=== PATIENT | male | born 1965 | race Hispanic/Latino ===

== ENCOUNTER 2017-02-04 07:26 | Inpatient (IN) | payer MEDICARE, OTHER ==
[2017-02-04] MEDS ORDERED: ZOFRAN IV ONE ×2 (08:03→12:56)
[2017-02-04] MEDS ORDERED: NACL 0.9% 1000 ML 1,000 ML IV ONE ×2 (08:03)
[2017-02-04] MEDS ORDERED: DILAUDID IV PRN (08:11)
[2017-02-04] MEDS ORDERED: ZOFRAN ONE (08:17)
[2017-02-04] MEDS ORDERED: NACL 0.9% 1000 ML 1,000 ML ONE ×2 (08:17→10:13)
--- NOTE | 2017-02-04 08:18 | Emergency Department Report ---
HPI - General Chief Complaint: Abdominal Pain Time Seen by Provider: 02/04/17 08:03 - [facility] HPI: Room 9 The patient is a 51-year-old male presenting with a chief complaint of abdominal pain. Patient states she developed lower abdominal pain with pain to the right flank constantly waxing and waning since yesterday. Patient describes plain is sharp in nature. Patient states he feels bloated and has exhibited nausea vomiting. Patient denies fever, dysuria or hematuria. The patient states his last bowel movement was a few minutes ago and there has been no change in his bowel habits. The patient contacted his bow maker gift wrapping ( Dr. Herring) this morning at 04:00 and then subsequently called 911 to come to the ED Location: Abdomen Duration: Constant since yesterday Quality: Sharp Severity: 7.5/10 Modifying factors: [see above] Context: [see above] Mode of transportation: [not driving] ED Past Medical Hx - Past Medical History Previous Medical History?: Yes Hx Hypertension: Yes Hx Arthritis: Yes (rheumatoid) Additional medical history: Jpouch, ulcerative colitis; removed large intestines 10 years ago hypercholesterolemia - Surgical History Past Surgical History?: Yes Additional Surgical History: J-pouch, knee surgery, shoulder surgery, rhinoplasty, oral surgery, tonsillectomy - Social History Smoking Status: Never Smoker Substance Use Type: None (denies illicit drug use), Alcohol (occasional) ED Review of Systems ROS: Stated complaint: POSS BOWEL OBSTRUCTION Other details as noted in HPI Constitutional: denies: fever Gastrointestinal: abdominal pain, nausea, vomiting Genitourinary: denies: dysuria, hematuria Musculoskeletal: back pain Physical Exam - Physical Exam Vital Signs: Vital Signs 02/04/17 07:36 Temperature 97.3 F L Pulse Rate 63 Respiratory 18 Rate Blood Pressure 98/60 [Left] O2 Sat by Pulse 98 Oximetry Physical Exam: GENERAL: The patient is well-developed well-nourished male lying on stretcher. Be in moderate discomfort. [] HEENT: Normocephalic. Atraumatic. Extraocular motions are intact. Patient has moist mucous membranes. NECK: Supple. Trachea midline CHEST/LUNGS: Clear to auscultation. There is no respiratory distress noted. HEART/CARDIOVASCULAR: Regular. There is no tachycardia. There is no gallop rub or murmur. ABDOMEN: Abdomen is soft, with tenderness to palpation in bilateral lower quadrants. There is no rigidity. Patient has normal bowel sounds. There is no abdominal distention. SKIN: There is no rash. There is no diaphoresis. NEURO: The patient is awake, alert, and oriented. The patient is cooperative. The patient has normal speech MUSCULOSKELETAL: There is no evidence of acute injury. ED Course Vital Signs 02/04/17 07:36 Temperature 97.3 F L Pulse Rate 63 Respiratory 18 Rate Blood Pressure 98/60 [Left] O2 Sat by Pulse 98 Oximetry - Consultations Consultation #1: 02/04/17 11:15 Gastroenterology paged 02/04/17 11:42 Case discussed with Alina RAUSCH/PLY CUTTER- will have Dr. Denis consult ED Medical Decision Making - Lab Data Result diagrams: 02/04/17 08:29 02/04/17 08:29 Laboratory Tests 02/04/17 02/04/17 02/04/17 08:29 08:29 10:47 WBC 12.9 H RBC 5.91 H Hgb 16.9 H Hct 50.6 H MCV 86 MCH 29 MCHC 33 RDW 14.4 Plt Count 346 Add Manual Diff Complete Total Counted 100 Seg Neuts % (Manual) 59.0 Band Neutrophils % 26.0 Lymphocytes % (Manual) 2.0 L Reactive Lymphs % (Man) 0 Monocytes % (Manual) 11.0 H Eosinophils % (Manual) 0 Basophils % (Manual) 0 Metamyelocytes % 2.0 Myelocytes % 0 Promyelocytes % 0 Blast Cells % 0 Nucleated RBC % Not Reportable Seg Neutrophils # Man 7.6 Band Neutrophils # 3.4 Lymphocytes # (Manual) 0.3 L Abs React Lymphs (Man) 0.0 Monocytes # (Manual) 1.4 H Eosinophils # (Manual) 0.0 Basophils # (Manual) 0.0 Metamyelocytes # 0.3 Myelocytes # 0.0 Promyelocytes # 0.0 Blast Cells # 0.0 WBC Morphology Not Reportable Hypersegmented Neuts Not Reportable Hyposegmented Neuts Not Reportable Hypogranular Neuts Not Reportable Smudge Cells Not Reportable Toxic Granulation Not Reportable Toxic Vacuolation Not Reportable Dohle Bodies Not Reportable Pelger-Huet Anomaly Not Reportable Robin Rods Not Reportable Platelet Estimate Appears normal Clumped Platelets Not Reportable Plt Clumps, EDTA Not Reportable Large Platelets Not Reportable Giant Platelets Not Reportable Platelet Satelliting Not Reportable Plt Morphology Comment Not Reportable RBC Morphology Not Reportable Dimorphic RBCs Not Reportable Polychromasia Not Reportable Hypochromasia Not Reportable Poikilocytosis Not Reportable Anisocytosis Not Reportable Microcytosis Not Reportable Macrocytosis Not Reportable Spherocytes Not Reportable Pappenheimer Bodies Not Reportable Sickle Cells Not Reportable Target Cells Not Reportable Tear Drop Cells Not Reportable Ovalocytes Few Stomatocytes Few Helmet Cells Not Reportable [place]order[place] Bodies Not Reportable [place] Rings Not Reportable [place] Cells Not Reportable Bite Cells Not Reportable Crenated Cell Not Reportable Elliptocytes Not Reportable Acanthocytes (Spur) Not Reportable Rouleaux Not Reportable Hemoglobin C Crystals Not Reportable Schistocytes Not Reportable Malaria parasites Not Reportable Robinson Bodies Not Reportable Hem Pathologist Commnt No Sodium 139 Potassium 4.6 Chloride 96.0 L Carbon Dioxide 25 Anion Gap 23 BUN 23 H Creatinine 2.0 H Estimated GFR 35 BUN/Creatinine Ratio 12 Glucose 156 H Calcium 10.1 Total Bilirubin 1.00 AST 27 ALT 40 Alkaline Phosphatase 70 Total Protein 7.7 Albumin 5.1 H Albumin/Globulin Ratio 2.0 Lipase 24 Urine Color Skyla Urine Turbidity Clear Urine pH 5.0 Ur Specific [place] 1.026 Urine Protein 100 mg/dl Urine Glucose (UA) 50 Urine Ketones Tr Urine Blood Neg Urine Nitrite Neg Urine Bilirubin Neg Urine Urobilinogen < 2.0 Ur Leukocyte Esterase Neg Urine WBC (Auto) 9.0 H Urine RBC (Auto) 12.0 U Epithel Cells (Auto) 1.0 Urine Bacteria (Auto) 1+ Ur Transition Epith Cell 1 Hyaline Casts 19 Urine Mucus 3+ - Radiology Data Radiology results: report reviewed (CT abdomen and pelvis), image reviewed (CT abdomen and pelvis) FINAL REPORT EXAM: CT ABDOMEN PELVIS WO CON HISTORY: lower abd pain, right flank pain. h/o j pouch TECHNIQUE: Noncontrast CT of the abdomen and pelvis performed. No IV or gastrointestinal contrast was administered. Coronal and sagittal reformatted images were obtained. PRIORS: None. FINDINGS: There are coronary artery atherosclerotic calcifications. The visualized aspects of the lung bases are clear. Within the limitations of a non-enhanced study, the visualized liver, spleen, pancreas, adrenal glands and kidneys demonstrate no significant abnormalities. Patient is status post colectomy. Bowel loops are dilated and fluid containing. This is diffuse. There are some normal caliber mid loops although distal bowel is dilated. Findings could be ileus or enteritis. There are apparent caliber transition at anastomoses. Segmental partial obstruction not excluded. There is no free intraperitoneal air. There are no abnormal fluid collections seen. There is no abdominal aortic aneurysm. IMPRESSION: Patient is status post colectomy with J-pouch. Majority of bowel is dilated and fluid containing. There is some mid abdominal normal caliber loops although distal bowel is dilated. Findings could relate represent ileus or enteritis. Apparent caliber transition seen and anastomoses. Partial obstruction not excluded. Transcribed By: ARIEL Dictated By: ELIAS MICHELLE MD Electronically Authenticated By: ELIAS MICHELLE MD Signed Date/Time: 02/04/17658 DD/ 8 TD/TT: 02/04/17658 - Differential Diagnosis small bowel obstruction, ileus, renal colic Critical care attestation.: If time is entered above; I have spent that time in minutes in the direct care of this critically ill patient, excluding procedure time. ED Disposition Clinical Impression: Ileus, Acute abdominal pain, Nausea & vomiting, Dehydration, Acute renal failure Disposition: -09 OP ADMIT IP TO THIS HOSP Is pt being admited?: Yes Does the pt Need Aspirin: No Condition: Fair Referrals: PRIMARY CAREMD [Primary Care Provider] - 3-5 Days Time of Disposition: 11:43 (hospitalist paged)
[2017-02-04 08:52] LABS: Hematocrit 50.6 % (35.5-45.6); Hemoglobin 16.9 gm/dl (11.8-15.2); Mean Corpuscular HGB Conc 33 % (32-34); Mean Corpuscular Hemoglobin 29 pg (28-32); Mean Corpuscular Volume 86 fl (84-94); Platelet Count 346 K/mm3 (140-440); Red Blood Count 5.91 M/mm3 (3.65-5.03); Red Cell Distribution Width 14.4 % (13.2-15.2); White Blood Count 12.9 K/mm3 (4.5-11.0)
[2017-02-04 09:16] LABS: Albumin 5.1 g/dL (3.9-5); Calcium 10.1 mg/dL (8.4-10.2); Potassium 4.6 mmol/L (3.6-5.0); Total Protein 7.7 g/dL (6.3-8.2)
[2017-02-04 09:36] LABS: Basophils % (Manual) 0 % (0.0-1.8); Blastocytes % (Manual) 0 %; Eosinophils % (Manual) 0 % (0.0-4.3)
[2017-02-04 09:43] LABS: Diff Status Complete; Ovalocytes Few; Stomatocytes Few
--- NOTE | 2017-02-04 11:02 | Cat Scan Report ---
FINAL REPORT EXAM: CT ABDOMEN PELVIS WO CON HISTORY: lower abd pain, right flank pain. h/o j pouch TECHNIQUE: Noncontrast CT of the abdomen and pelvis performed. No IV or gastrointestinal contrast was administered. Coronal and sagittal reformatted images were obtained. PRIORS: None. FINDINGS: There are coronary artery atherosclerotic calcifications. The visualized aspects of the lung bases are clear. Within the limitations of a non-enhanced study, the visualized liver, spleen, pancreas, adrenal glands and kidneys demonstrate no significant abnormalities. Patient is status post colectomy. Bowel loops are dilated and fluid containing. This is diffuse. There are some normal caliber mid loops although distal bowel is dilated. Findings could be ileus or enteritis. There are apparent caliber transition at anastomoses. Segmental partial obstruction not excluded. There is no free intraperitoneal air. There are no abnormal fluid collections seen. There is no abdominal aortic aneurysm. IMPRESSION: Patient is status post colectomy with J-pouch. Majority of bowel is dilated and fluid containing. There is some mid abdominal normal caliber loops although distal bowel is dilated. Findings could relate represent ileus or enteritis. Apparent caliber transition seen and anastomoses. Partial obstruction not excluded.
[2017-02-04 11:32] LABS: Bacteria,Urine 1+ /HPF (Negative); Bilirubin,Urine NEG (Negative); Blood,Urine NEG (Negative); Ketones,Urine TR mg/dL (Negative); Leukocyte Esterase,Urine NEG (Negative); Mucus,Urine 3+ /HPF; Nitrite,Urine NEG (Negative); Urobilinogen,Urine < 2.0 mg/dL (<2.0)
[2017-02-04] MEDS ORDERED: REGLAN IV ONE (12:48)
[2017-02-04] MEDS ORDERED: TYLENOL PO PRN (12:56)
--- NOTE | 2017-02-04 13:16 | Gastroenterology Consultation ---
History of Present Illness - Reason for Consult Consult date: 02/04/17 h/o UC, ileus vs SBO Requesting physician: RICKI OLVERA - History of Present Illness Mr Parrish is a 51 yo male with h/o ulcerative colitis s/p sub-total colectomy with J pouch who presents with sudden onset of lower abdominal pain. Patient had surgery for UC several years ago, and has had multiple admissions for ileus in the past. He states he ate ernst greens yesterday, and soon after experienced sudden onset of lower abdominal pain with radiation to the right side of his abdomen. He had mild abdominal distention at the time of symptoms, and reports having an episode of bilious emesis this morning around 4 AM. He had decreased bm's yesterday at the time of symptoms (baseline of 10-12 per day) . His bm's have since returned since ED arrival with 3 episodes of loose bm's since being in the ED. He denies hematochezia. His abdomen feels less distended and his pain has subsided with pain meds. NO further episodes of n/v since early this morning. He reports a h/o pouchitis in the past, and believes his last flex sig was ~ 2 years ago. The patient is followed by Dr Dumont. Past History Past Medical History: other (ulcerative colitis) Past Surgical History: Other (sub-total colectomy with J pouch) Social history: no significant social history Family history: no significant family history Medications and Allergies Allergies Allergy/AdvReac Type Severity Reaction Status Date / Time No Known Allergies Allergy Verified 02/04/17 07:56 Home Medications Medication Instructions Recorded Confirmed Last Taken Type Aspirin [Aspirin EC] 81 mg PO DAILY 02/04/17 02/04/17 02/03/17 History Bismuth Subsalicylate 2 tsp PO QAM 02/04/17 02/04/17 02/03/17 History [Pepto-Bismol] Duloxetine HCl [DULoxetine] 60 mg PO DAILY 02/04/17 02/04/17 02/03/17 History Ergocalciferol (Vitamin D2) 2,000 unit PO DAILY 02/04/17 02/04/17 02/03/17 History [Vitamin D2] Simvastatin [Zocor TAB] 40 mg PO QHS 02/04/17 02/04/17 02/03/17 History Thyroid,Pork [Nature-Throid] 16.25 mg PO QDAY 02/04/17 02/04/17 02/03/17 History Active Meds: Active Medications Acetaminophen (Tylenol) 650 mg PO Q4H PRN PRN Reason: For Pain/Fever/Headache Aspirin (Halfprin Ec) 81 mg PO DAILY [facility] Bismuth Subsalicylate (Pepto Bismol) 174.67 mg PO QAM [facility] Cholecalciferol (Vitamin D3) 2,000 unit PO DAILY [facility] Duloxetine HCl (Cymbalta) 60 mg PO QDAY [facility] Heparin Sodium (Porcine) (Heparin) 5,000 unit SUB-Q Q12HR [facility] Hydromorphone HCl (Dilaudid) 1 mg IV ONCE PRN PRN Reason: Pain Last Admin: 02/04/17 11:22 Dose: 1 mg Hydromorphone HCl (Dilaudid) 1 mg IV Q4H PRN PRN Reason: Pain Metronidazole (Flagyl 500 Mg/100 Ml) 500 mg in 100 mls @ 100 mls/hr IV Q8HR [facility] Sodium Chloride (Nacl 0.9% 1000 Ml) 1,000 mls @ 125 mls/hr IV DIRECT [facility] Ceftriaxone Sodium 1 gm/ (Sodium Chloride) 20 mls @ 20 mls/10 min IV Q24H [facility] Miscellaneous Medication (Duloxetine Hcl [Duloxetine]) 60 mg PO DAILY [facility] Miscellaneous Medication (Ergocalciferol (Vitamin D2) [Vitamin D2]) 2,000 unit PO DAILY [facility] Miscellaneous Medication (Simvastatin) 40 mg PO QHS [facility] Miscellaneous Medication (Thyroid,Pork [Nature-Throid]) 16.25 mg PO QDAY [facility] Ondansetron HCl (Zofran) 4 mg IV Q6H PRN PRN Reason: Nausea And Vomiting Pravastatin Sodium (Pravachol) 80 mg PO QHS [facility] Review of Systems - Review of Systems All systems: negative (per HPI) Exam - Constitutional Vital Signs: Temp Pulse Resp BP Pulse Ox 97.3 F L 66 29 H 98/60 99 02/04/17 07:36 02/04/17 07:36 02/04/17 07:57 02/04/17 07:36 02/04/17 07:57 General appearance: no acute distress - EENT Eyes: PERRL, EOM intact - Respiratory Respiratory effort: normal Respiratory: bilateral: CTA - Cardiovascular Rhythm: regular Heart Sounds: Present: S1 & S2 Extremities: No edema - Gastrointestinal General gastrointestinal: Present: soft (mild diffuse ttp), non-distended, hypoactive bowel sounds, other (+ surgical scars) - Integumentary Integumentary: Present: clear, warm, dry - Neurologic Neurological: alert and oriented x3 - Psychiatric Psychiatric: appropriate mood/affect - Labs CBC & Chem 7: 02/05/17 05:53 02/05/17 05:53 Lab Results: Laboratory Results - last 24 hr 02/04/17 02/04/17 02/04/17 08:29 08:29 10:47 WBC 12.9 H RBC 5.91 H Hgb 16.9 H Hct 50.6 H MCV 86 MCH 29 MCHC 33 RDW 14.4 Plt Count 346 Add Manual Diff Complete Total Counted 100 Seg Neuts % (Manual) 59.0 Band Neutrophils % 26.0 Lymphocytes % (Manual) 2.0 L Reactive Lymphs % (Man) 0 Monocytes % (Manual) 11.0 H Eosinophils % (Manual) 0 Basophils % (Manual) 0 Metamyelocytes % 2.0 Myelocytes % 0 Promyelocytes % 0 Blast Cells % 0 Nucleated RBC % Not Reportable Seg Neutrophils # Man 7.6 Band Neutrophils # 3.4 Lymphocytes # (Manual) 0.3 L Abs React Lymphs (Man) 0.0 Monocytes # (Manual) 1.4 H Eosinophils # (Manual) 0.0 Basophils # (Manual) 0.0 Metamyelocytes # 0.3 Myelocytes # 0.0 Promyelocytes # 0.0 Blast Cells # 0.0 WBC Morphology Not Reportable Hypersegmented Neuts Not Reportable Hyposegmented Neuts Not Reportable Hypogranular Neuts Not Reportable Smudge Cells Not Reportable Toxic Granulation Not Reportable Toxic Vacuolation Not Reportable Dohle Bodies Not Reportable Pelger-Huet Anomaly Not Reportable Robin Rods Not Reportable Platelet Estimate Appears normal Clumped Platelets Not Reportable Plt Clumps, EDTA Not Reportable Large Platelets Not Reportable Giant Platelets Not Reportable Platelet Satelliting Not Reportable Plt Morphology Comment Not Reportable RBC Morphology Not Reportable Dimorphic RBCs Not Reportable Polychromasia Not Reportable Hypochromasia Not Reportable Poikilocytosis Not Reportable Anisocytosis Not Reportable Microcytosis Not Reportable Macrocytosis Not Reportable Spherocytes Not Reportable Pappenheimer Bodies Not Reportable Sickle Cells Not Reportable Target Cells Not Reportable Tear Drop Cells Not Reportable Ovalocytes Few Stomatocytes Few Helmet Cells Not Reportable [place] Bodies Not Reportable [place] Rings Not Reportable [place] Cells Not Reportable Bite Cells Not Reportable Crenated Cell Not Reportable Elliptocytes Not Reportable Acanthocytes (Spur) Not Reportable Rouleaux Not Reportable Hemoglobin C Crystals Not Reportable Schistocytes Not Reportable Malaria parasites Not Reportable Robinson Bodies Not Reportable Hem Pathologist Commnt No Sodium 139 Potassium 4.6 Chloride 96.0 L Carbon Dioxide 25 Anion Gap 23 BUN 23 H Creatinine 2.0 H Estimated GFR 35 BUN/Creatinine Ratio 12 Glucose 156 H Calcium 10.1 Total Bilirubin 1.00 AST 27 ALT 40 Alkaline Phosphatase 70 Total Protein 7.7 Albumin 5.1 H Albumin/Globulin Ratio 2.0 Lipase 24 Urine Color Skyla Urine Turbidity Clear Urine pH 5.0 Ur Specific [place] 1.026 Urine Protein 100 mg/dl Urine Glucose (UA) 50 Urine Ketones Tr Urine Blood Neg Urine Nitrite Neg Urine Bilirubin Neg Urine Urobilinogen < 2.0 Ur Leukocyte Esterase Neg Urine WBC (Auto) 9.0 H Urine RBC (Auto) 12.0 U Epithel Cells (Auto) 1.0 Urine Bacteria (Auto) 1+ Ur Transition Epith Cell 1 Hyaline Casts 19 Urine Mucus 3+ - Imaging CT Scan: report reviewed Assessment and Plan 1. Abdominal pain - associated with n/v; CT suggestive of ileus vs possibly low grade SBO at anastomosis site. clinically appears to be doing better (abd non- distended, + bm's, no further n/v episodes) -NG tube if further n/v episodes -serial KUB -avoid pain medications -consider flex to evaluate anastomosis site and r/o pouchitis -consider empiric abx based on progress
[2017-02-04] MEDS: FLAGYL 500 MG/100 ML 500 MG/100 ML BAG IV SCH ×2 (14:22→22:41)
--- NOTE | 2017-02-04 14:39 | History and Physical Report ---
CHIEF COMPLAINT: Abdominal pain. HISTORY OF PRESENT ILLNESS: The patient is a 51-year-old male who has been having abdominal pain going on since yesterday. Pain is in the lower abdominal quadrant areas on both sides and also in the right flank area. There is history of associated bloating, nausea, and vomiting. The patient denies any tree of constipation and had the last bowel movement sometime this morning. There was also no history of fever or chills. No history of dysuria or hematuria. No history of blood in the stool. The patient also denied history of shortness of breath or chest pain. PAST MEDICAL HISTORY: Pertinent for hypertension, rheumatoid arthritis, ulcerative colitis, and hypercholesterolemia. PAST SURGICAL HISTORY: Pertinent for J-pouch placement after evidence on colectomy. Also, the patient has past surgical history of knee surgery, shoulder surgery, rhinoplasty, oral surgery and tonsillectomy. FAMILY HISTORY: Noncontributory. SOCIAL HISTORY: The patient smoke, drinks alcohol occasionally, and does not use illicit drugs. MEDICATIONS: The patient's home medications include aspirin 81 mg daily, bismuth subsalicylate or Pepto-Bismol 265 mg/5 mL by mouth every morning. The patient is on duloxetine 60 mg by mouth daily, vitamin D 2000 units by mouth daily, simvastatin 40 mg daily, thyroid or called Nature-Throid 16.25 mg by mouth daily. ALLERGIES: There are no known drug allergies. REVIEW OF SYSTEMS: CONSTITUTIONAL: There is no fever, no chills, no diaphoresis. HEENT: There is no headache or sore throat. CARDIOVASCULAR: There is no chest pain or orthopnea. RESPIRATORY: There is no shortness of breath or cough. GASTROINTESTINAL: Abdominal pain present. Abdominal bloating present. Nausea and vomiting present. No diarrhea, no constipation. NEUROLOGICAL: There is no numbness, no dizziness, no altered mental status. MUSCULOSKELETAL: There is no joint pain or swelling. DERMATOLOGICAL: There is no skin rash or itching. GENITOURINARY: There is no dysuria, hematuria, or flank pain. Rest of system review is normal. PHYSICAL EXAMINATION: GENERAL: At the time of exam, the patient was found to be alert, oriented x 3 and in mild distress due to abdominal pain. VITAL SIGNS: Shows temperature of 97.3 degrees Fahrenheit, pulse of 63, respirations 18, blood pressure 92/60, O2 sat of 98% on room air. HEENT: Showed pupils to be equal, round, reactive to light and accommodation. Extraocular muscles are intact. Oral mucosa looks dry. NECK: Supple with no JVD or carotid bruits. CARDIOVASCULAR: Show First and second heart sounds to be normal with no gallops or murmur. RESPIRATORY: Show good air entry on both sides of the lungs with no abnormal breath sound. GASTROINTESTINAL: Show abdomen to be full, soft with tenderness in the right lower quadrant and right adjacent flank area. There is no rebound tenderness. No guarding or rigidity. NEUROLOGIC: Shows no focal deficit. MUSCULOSKELETAL: Show no joint swelling or tenderness. DERMATOLOGICAL: Show no skin rash. GENITOURINARY: Showing costovertebral angle tenderness. PERTINENT LABORATORY DATA AND IMAGING STUDIES: The patient has CBC done with elevated white count of 12,900 with elevated hemoglobin level of 16,900 and elevated hematocrit of 50.6. Suspected be due to hemoconcentration. CBC differential was unremarkable. The patient's chemistry shows normal sodium, normal potassium with slightly low chloride of 96 and elevated BUN of 23 and elevated creatinine of 2.0 with elevated glucose level of 156 and elevated albumin level of 5.1. The patient's urinalysis show elevated white count of 9. Normal leukocyte esterase, negative nitrites, 1+ bacteria. IMAGING STUDIES: The patient had CT of the abdomen and pelvis done without contrast and the CT report shows the patient to be status post colectomy with J-pouch placement. The CT report stated that majority of the bowel is dilated and fluid containing. There is some mid abdominal normal caliber loop, although Radiology said bowel is dilated and he said that findings could represent presence of ileus or enteritis and the radiologist went further to say that partial obstruction is not excluded. DIAGNOSES: 1. Abdominal pain. 2. Enteritis. 3. Acute renal failure. 4. Dehydration. PLAN: The patient will be admitted to medical surgical arceo and will be on IV normal saline at 125 mL an hour. The patient will have blood culture done and then will be on IV Rocephin 1 g daily as well as IV metronidazole 500 mg q.8h. The patient will have basic metabolic panel and CBC done tomorrow and as already had GI consult with emergency communications operator gastroenteritis. The patient will also have Nephrology consult with Dr. Escobar for acute kidney injury and will be on IV Dilaudid 1 mg every 4 hours as needed for pain and IV Zofran 4 mg every 6 hours nausea and vomiting. The patient will also be on Tylenol 650 mg by mouth q.4h. as needed for fever and headache and will be on his home medication as already shown in the reconciliation section. Deep vein thrombosis prophylaxis will be through the heparin 5000 units subcutaneous q.12h. The patient will be n.p.o. until seen by Cyber Reverse Engineer. JOB# [id number] OCN/NTS MTDD
[2017-02-04] MEDS ORDERED: cefTRIAXone 1 GM in NACL 0.9% 20 ML IV SCH ×2 (15:00→19:00)
--- NOTE | 2017-02-04 16:13 | Consultation ---
History of Present Illness - Reason for Consult Consult date: 02/04/17 acute renal failure Requesting physician: BRIDGER RAMIREZ - History of Present Illness Mr Parrish is a 51 yo male with h/o ulcerative colitis s/p sub-total colectomy with J pouch who presents with sudden onset of lower abdominal pain. Patient had surgery for UC several years ago, and has had multiple admissions for ileus in the past. He states he ate ernst greens yesterday, and soon after experienced sudden onset of lower abdominal pain with radiation to the right side of his abdomen. He had mild abdominal distention at the time of symptoms, and reports having an episode of bilious emesis this morning around 4 AM. He had decreased bm's yesterday at the time of symptoms (baseline of 10-12 per day) . His bm's have since returned since ED arrival with 3 episodes of loose bm's since being in the ED. He denies hematochezia. His abdomen feels less distended and his pain has subsided with pain meds. NO further episodes of n/v since early this morning. He reports a h/o pouchitis in the past, and believes his last flex sig was ~ 2 years ago. His serum creatinine is noted to be 2.0 and therefore this consultation. Patient denies any previous knowledge of renal dysfunction. Denies any significant nonsteroidal use. He does state that he has had some difficulty with urination recently. Also noticed that he was very concentrated this morning. Past History Past Medical History: hypertension, other (ulcerative colitis) Past Surgical History: Other (sub-total colectomy with J pouch) Social history: no significant social history Family history: no significant family history Medications and Allergies Allergies Allergy/AdvReac Type Severity Reaction Status Date / Time No Known Allergies Allergy Verified 02/04/17 07:56 Home Medications Medication Instructions Recorded Confirmed Last Taken Type Aspirin [Aspirin EC] 81 mg PO DAILY 02/04/17 02/04/17 02/03/17 History Bismuth Subsalicylate 2 tsp PO QAM 02/04/17 02/04/17 02/03/17 History [Pepto-Bismol] Duloxetine HCl [DULoxetine] 60 mg PO DAILY 02/04/17 02/04/17 02/03/17 History Ergocalciferol (Vitamin D2) 2,000 unit PO DAILY 02/04/17 02/04/17 02/03/17 History [Vitamin D2] Simvastatin [Zocor TAB] 40 mg PO QHS 02/04/17 02/04/17 02/03/17 History Thyroid,Pork [Nature-Throid] 16.25 mg PO QDAY 02/04/17 02/04/17 02/03/17 History Active Meds: Active Medications Acetaminophen (Tylenol) 650 mg PO Q4H PRN PRN Reason: For Pain/Fever/Headache Aspirin (Halfprin Ec) 81 mg PO DAILY [facility] Bismuth Subsalicylate (Pepto Bismol) 174.67 mg PO QAM [facility] Cholecalciferol (Vitamin D3) 2,000 unit PO DAILY [facility] Duloxetine HCl (Cymbalta) 60 mg PO QDAY [facility] Heparin Sodium (Porcine) (Heparin) 5,000 unit SUB-Q Q12HR [facility] Hydromorphone HCl (Dilaudid) 1 mg IV ONCE PRN PRN Reason: Pain Last Admin: 02/04/17 11:22 Dose: 1 mg Hydromorphone HCl (Dilaudid) 1 mg IV Q4H PRN PRN Reason: Pain Metronidazole (Flagyl 500 Mg/100 Ml) 500 mg in 100 mls @ 100 mls/hr IV Q8HR [facility] Last Infusion: 02/04/17 15:22 Dose: Infused Sodium Chloride (Nacl 0.9% 1000 Ml) 1,000 mls @ 125 mls/hr IV DIRECT [facility] Ceftriaxone Sodium 1 gm/ (Sodium Chloride) 20 mls @ 20 mls/10 min IV Q24H [facility] Miscellaneous Medication (Thyroid,Pork [Nature-Throid]) 16.25 mg PO QDAY [facility] Ondansetron HCl (Zofran) 4 mg IV Q6H PRN PRN Reason: Nausea And Vomiting Pravastatin Sodium (Pravachol) 80 mg PO QHS [facility] Review of Systems All systems: negative (negative except as noted above) Exam - Vital Signs Vital signs: Vital Signs Temp Pulse Resp BP Pulse Ox 97.3 F L 66 18 98/60 99 02/04/17 07:36 02/04/17 07:36 02/04/17 07:36 02/04/17 07:36 02/04/17 07:36 - General Appearance General appearance: well-developed, well-nourished, appears stated age EENT: PERRL, mucous membranes moist Neck: Present: neck supple, trachea midline. Absent: JVD/HJR, Masses Respiratory: Clear to Ascultation Heart: regular, normal heart rate Gastrointestinal: Present: normal, normoactive bowel sounds, other ( scar marycruz noted in his abdominal wall. Mild diffuse tenderness) Integumentary: no rash, other (no edema) Results - Lab Results 02/04/17 08:29 02/04/17 08:29 Most recent lab results Calcium 10.1 mg/dL (8.4-10.2) 02/04/17 08:29 Assessment and Plan Impression * Acute renal failure. Most likely prerenal * Ulcerative colitis * Rheumatoid arthritis * History of hypertension Recommendations * His urine appears to be concentrated with a high specific gravity. Suspect that he has a prerenal component. He does however have some dipstick blood and protein. Shall do vasculitis workup as well * Shall check a fractional excretion of sodium * Shall also check a renal ultrasound with postvoid residual as he has some difficulty urinating * Agree with IV hydration. * Avoid Nephrotoxins * Monitor fluid status and electrolytes closely * Thank you very much for the consultation. Shall follow along with you
[2017-02-04] MEDS: DILAUDID IV PRN (19:47)
[2017-02-04] MEDS: ZOFRAN IV PRN (19:48)
[2017-02-04] MEDS ORDERED: BENTYL IM ONE (21:52)
[2017-02-04] MEDS ORDERED: NON-FORMULARY (Simvastatin 40 MG) PO SCH (22:00)
[2017-02-04] MEDS: BENADRYL IV PRN (22:40)
[2017-02-04] MEDS: PRAVACHOL PO SCH ×2 (22:41→22:43)
[2017-02-04] MEDS: HEPARIN SUB-Q SCH (22:46)
[2017-02-05] MEDS: ZOFRAN IV PRN ×2 (01:43→07:17)
[2017-02-05] MEDS: DILAUDID IV PRN ×2 (01:43→07:17)
[2017-02-05] MEDS: NACL 0.9% 1000 ML 1,000 ML IV SCH ×2 (01:50→09:59)
[2017-02-05 06:08] LABS: Hematocrit 40.2 % (35.5-45.6); Hemoglobin 13.5 gm/dl (11.8-15.2); Mean Corpuscular HGB Conc 34 % (32-34); Mean Corpuscular Hemoglobin 29 pg (28-32); Mean Corpuscular Volume 87 fl (84-94); Platelet Count 216 K/mm3 (140-440); Red Blood Count 4.61 M/mm3 (3.65-5.03); Red Cell Distribution Width 14.2 % (13.2-15.2)
[2017-02-05 06:23] LABS: Anion Gap 16 mmol/L; BUN/Creatinine Ratio 16; Blood Urea Nitrogen 19 mg/dL (9-20); Carbon Dioxide 23 mmol/L (22-30); Chloride 108.8 mmol/L (98-107); Glucose 105 mg/dL (75-100); Potassium 4.5 mmol/L (3.6-5.0); Sodium 143 mmol/L (137-145)
[2017-02-05] MEDS: FLAGYL 500 MG/100 ML 500 MG/100 ML BAG IV SCH ×2 (07:15→14:00)
[2017-02-05] MEDS: BENADRYL IV PRN (08:17)
[2017-02-05] MEDS ORDERED: FLEET PR ONE ×2 (09:33→11:00)
[2017-02-05] MEDS ORDERED: NON-FORMULARY (Ergocalciferol (Vitamin D2) [Vitamin D2] 2,000 UNIT) PO SCH (10:00)
[2017-02-05] MEDS ORDERED: VITAMIN D3 PO SCH (10:00)
[2017-02-05] MEDS: HEPARIN SUB-Q SCH (10:00)
[2017-02-05] MEDS ORDERED: ROCEPHIN/NS 1 GM/50 ML 1 GM/50 ML BAG IV SCH (10:00)
[2017-02-05] MEDS ORDERED: NON-FORMULARY (Duloxetine Hcl [Duloxetine] 60 MG) PO SCH (10:00)
[2017-02-05] MEDS ORDERED: CYMBALTA PO SCH (10:00)
[2017-02-05] MEDS ORDERED: HALFPRIN EC PO SCH (10:00)
[2017-02-05] MEDS ORDERED: PEPTO BISMOL PO SCH (10:00)
[2017-02-05] MEDS ORDERED: THYROID PORK 16.25 MG PO SCH (10:00)
--- NOTE | 2017-02-05 10:42 | Gastroenterology Progress Note ---
Assessment and Plan 1. Abdominal pain - associated with n/v; CT suggestive of ileus vs possibly low grade SBO at anastomosis site -clinically pt c/o continued lower abd discomfort with nausea but no vomiting with +BS and BMs overnight and this am, however pt reports consistency of stool and frequency of BMs have decreased -will schedule for flex today to evaluate anastomosis site and r/o pouchitis -consider empiric abx based on progress -serial KUB -avoid pain medications -continue supportive care -will follow Subjective Date of service: 02/05/17 Principal diagnosis: abdominal pain Interval history: Patient resting in bed this am with no acute distress or events overnight. Reports continued lower abd pain and discomfort with nausea but no vomiting. + BMs this am with green liquid stool. Objective - Constitutional Vitals: Temp Pulse Resp BP Pulse Ox 98.3 F 75 20 117/78 93 02/05/17 07:34 02/05/17 07:34 02/05/17 07:34 02/05/17 07:34 02/05/17 07:34 General appearance: no acute distress, well-nourished - EENT Eyes: PERRL, EOM intact ENT: hearing intact - Respiratory Respiratory: bilateral: CTA - Cardiovascular Rhythm: regular Heart Sounds: Present: S1 & S2 - Gastrointestinal General gastrointestinal: Present: soft, tender (mild diffuse tenderness in lower abd), non-distended, hypoactive bowel sounds - Integumentary Integumentary: Present: warm, dry - Neurologic Neurological: alert and oriented x3 - Labs CBC & Chem 7: 02/05/17 05:53 02/05/17 05:53 Labs: Laboratory Results - last 24 hr 02/04/17 02/04/17 02/04/17 10:47 16:37 20:30 WBC RBC Hgb Hct MCV MCH MCHC RDW Plt Count Sodium Potassium Chloride Carbon Dioxide Anion Gap BUN Creatinine Estimated GFR BUN/Creatinine Ratio Glucose Calcium Urine Color Skyla Urine Turbidity Clear Urine pH 5.0 Ur Specific Faison 1.026 Urine Protein 100 mg/dl Urine Glucose (UA) 50 Urine Ketones Tr Urine Blood Neg Urine Nitrite Neg Urine Bilirubin Neg Urine Urobilinogen < 2.0 Ur Leukocyte Esterase Neg Urine WBC (Auto) 9.0 H Urine RBC (Auto) 12.0 U Epithel Cells (Auto) 1.0 Urine Bacteria (Auto) 1+ Ur Transition Epith Cell 1 Hyaline Casts 19 Urine Mucus 3+ Urine Creatinine 368.1 H Protein/Creatinin Ratio 0.15 Urine Sodium 10 Fraction Sodium Excret 0.0 Urine Total Protein 57 H Hepatitis A IgM Ab Non-reactive Hep B Core IgM Ab Non-reactive Hepatitis C Antibody Non-reactive 02/04/17 02/05/17 02/05/17 20:46 05:53 05:53 WBC 6.0 RBC 4.61 Hgb 13.5 D Hct 40.2 D MCV 87 MCH 29 MCHC 34 RDW 14.2 Plt Count 216 Sodium 138 143 Potassium 4.5 Chloride 108.8 H Carbon Dioxide 23 Anion Gap 16 BUN 19 Creatinine 1.4 1.2 Estimated GFR > 60 BUN/Creatinine Ratio 16 Glucose 105 H Calcium 8.0 L D Urine Color Urine Turbidity Urine pH Ur Specific Faison Urine Protein Urine Glucose (UA) Urine Ketones Urine Blood Urine Nitrite Urine Bilirubin Urine Urobilinogen Ur Leukocyte Esterase Urine WBC (Auto) Urine RBC (Auto) U Epithel Cells (Auto) Urine Bacteria (Auto) Ur Transition Epith Cell Hyaline Casts Urine Mucus Urine Creatinine Protein/Creatinin Ratio Urine Sodium Fraction Sodium Excret Urine Total Protein Hepatitis A IgM Ab Hep B Core IgM Ab Hepatitis C Antibody
--- NOTE | 2017-02-05 10:44 | Progress Note ---
Assessment and Plan Impression * Acute renal failure. Most likely prerenal * Ulcerative colitis * Rheumatoid arthritis * History of hypertension Recommendations * His renal function has improved significantly. Most likely prerenal. Urine sodium is 10. * He does however have some dipstick blood and protein. Follow-up results of vasculitis workup as well * Awaiting results of renal ultrasound with postvoid residual * Continue IV hydration. * Avoid Nephrotoxins * Monitor fluid status and electrolytes closely Subjective Date of service: 02/05/17 Interval history: Patient feels somewhat better today. Nausea and vomiting is under control with Zofran. Continues to have diarrhea. He also does have some abdominal pain. Denies any shortness of breath. Complains of not getting his IV fluid Objective - Vital Signs Vital signs: Vital Signs - 12hr 02/05/17 07:34 Temperature 98.3 F Pulse Rate 75 Respiratory 20 Rate Blood Pressure 117/78 O2 Sat by Pulse 93 Oximetry - General Appearance General appearance: well-developed, well-nourished, appears stated age EENT: PERRL, mucous membranes moist Neck: no JVD, no thyromegaly, no carotid bruit, supple Respiratory: Present: Clear to Ascultation Cardiology: regular, normal heart rate Gastrointestinal: normoactive bowel sounds, tenderness (mild diffuse tenderness. ) Integumentary: no rash, other (no edema) - Lab 02/05/17 05:53 02/05/17 05:53 Most recent lab results Calcium 8.0 mg/dL (8.4-10.2) L D 02/05/17 05:53 Urine Creatinine 368.1 mg/dL (0.1-20.0) H 02/04/17 20:30 Urine Sodium 10 mmol/L 02/04/17 20:30 Urine Total Protein 57 mg/dL (5-11.8) H 02/04/17 20:30
[2017-02-05] MEDS ORDERED: NACL 0.9% 1000 ML 1,000 ML ONE (11:10)
--- NOTE | 2017-02-05 12:42 | Anesthesia Consultation ---
Anesthesia Consult and Med Hx Date of service: 02/05/17 - Airway Anesthetic Teeth Evaluation: Good ROM Head & Neck: Adequate Mental/Hyoid Distance: Adequate Mallampati Class: Class II Intubation Access Assessment: Probably Good - Pulmonary Exam CTA: Yes - Cardiac Exam Cardiac Exam: RRR - Pre-Operative Health Status ASA Pre-Surgery Classification: ASA3 Proposed Anesthetic Plan: MAC - Cardiovascular System Hx Hypertension: Yes - Central Nervous System Hx Neuromuscular Disorder: Yes (rheumatoid arthritis) - Gastrointestinal Hx Ulcer: Yes (ulcerative colitis)
--- NOTE | 2017-02-05 12:42 | Anesthesia Day of Surgery ---
Anesthesia Day of Surgery - Day of Surgery Patient Examined: Yes Patient H&P Reviewed: Yes Patient is NPO: Yes
[2017-02-05] MEDS ORDERED: WATER FOR IRRIG STERILE IR ONE (13:57)
[2017-02-05] MEDS ORDERED: DIPRIVAN 10 MG/ML IV ONE ×2 (14:40)
[2017-02-05] MEDS ORDERED: WATER FOR IRRIG STERILE ONE (14:56)
[2017-02-05] MEDS ORDERED: XYLOCAINE MPF 2% ONE (15:00)
--- NOTE | 2017-02-05 15:05 | Post Operative Note ---
Pre-op diagnosis: diarrhea, change in bowel habits, h/o subtotal colectomy with J pouch Post-op diagnosis: other (mild pouchitis) Findings: Flex sig: Mild erythematous mucosa and few small superficial erosions in pouch (Pouchitis) . otherwise, normal appearing anastamosis site. Procedure: Flex sig with biopsies Anesthesia: MAC Surgeon: TAMARA LU Estimated blood loss: minimal Pathology: list (Jar A - pouchitis biopsies) Specimen disposition: to lab Condition: stable Disposition: floor
--- NOTE | 2017-02-05 15:13 | Operative Report ---
Operative Report Operative Report: Flexible Sigmoidoscopy with biopsies Date of procedure: 02/05/17 Endoscopist: Nigel Denis Pre-op diagnosis: change in bowel habits, abnormal imaging, h/o UC s/p subtotal colectomy with J pouch Post-op diagnosis: mild pouchitis MEDICATIONS: MAC COMPLICATIONS: No immediate complications ESTIMATED BLOOD LOSS: minimal DESCRIPTION OF PROCEDURE: After consent was obtained, the patient was placed in the left lateral decubitus position. The [employer] pediatric colonoscope was inserted under direct vision into the patient's rectum, and advanced to the anastamosis site and up to 30 cm from anal canal. The patient tolerated the procedure well. The views of the mucosa were good. Quality of prep was good. The patient's vital signs were monitored continuously throughout the procedure. FINDINGS: There was mild erythematous mucosa with a few small superficial erosions in the distal portion of J pouch. Biopsies were obtained. The anastomosis site was patent (without signs of stricture), with normal appearing mucosa. IMPRESSION: 1. Mild pouchitis. Biopsies obtained. RECOMMENDATIONS: -follow-up pathology -empiric course of cipro/flagyl x 7 days -consider starting probiotic as outpatient -follow-up in GI clinic with Dr Dumont in 3-4 weeks Will sign off, please call as needed or with questions
--- NOTE | 2017-02-05 15:20 | Post Anesthesia Evaluation ---
- Post Anesthesia Evaluation Patient Participated: Yes Airway Patent: Yes Stable Respiratory Function: Yes Nausea/Vomiting: No Temp > 96.8F: Yes Pain Manageable: Yes Adequeate Hydration: Yes Anesthesia Complications: No Block Receding Appropriately: Not Applicable Patient on Ventilator: No
--- NOTE | 2017-02-05 15:22 | Discharge Summary ---
Providers - Providers Date of Admission: 02/04/17 12:44 Attending physician: TRI VELASCO MD 02/04/17 11:41 Consult to Physician [CONS] Urgent Consulting Provider: TAMARA LU Reason For Exam: ileus, nausea/vomiting Place consult to:: phone Notified:: y 02/04/17 12:49 Consult to Physician [CONS] Routine Consulting Provider: EMERSON WHITTEN Reason For Exam: MAC Place consult to:: NEPHROLOGY Notified:: N Primary care physician: PROCESS IMPROVEMENT ANALYST Hospitalization Reason for admission: abdominal pain Condition: Stable Hospital course: Mr Parrish is a 51 yo male with h/o ulcerative colitis s/p sub-total colectomy with J pouch who presents with sudden onset of lower abdominal pain. Patient had surgery for UC several years ago, and has had multiple admissions for ileus in the past. He states he ate ernst greens yesterday, and soon after experienced sudden onset of lower abdominal pain with radiation to the right side of his abdomen. He had mild abdominal distention at the time of symptoms, and reports having an episode of bilious emesis this morning around 4 AM. He had decreased bm's yesterday at the time of symptoms (baseline of 10-12 per day) . His bm's have since returned since ED arrival with 3 episodes of loose bm's since being in the ED. He denies hematochezia. His abdomen feels less distended and his pain has subsided with pain meds. NO further episodes of n/v since early this morning. He reports a h/o pouchitis in the past, and believes his last flex sig was ~ 2 years ago. The patient is followed by Dr Dumont. During hospitalization the patient was aggressively fluid resuscitated and proceeded to have a flex sigmoid which revealed the following as noted below. He'll be treated with Cipro and Flagyl for 7 days and also probiotics of fluid GI outpatient There was mild erythematous mucosa with a few small superficial erosions in the distal portion of J pouch. Biopsies were obtained. The anastomosis site was patent (without signs of stricture), with normal appearing mucosa. IMPRESSION: 1. Mild pouchitis. Biopsies obtained. RECOMMENDATIONS: -follow-up pathology -empiric course of cipro/flagyl x 7 days -consider starting probiotic as outpatient -follow-up in GI clinic with Dr Dumont in 3-4 weeks Discharge diagnosis Mild pouchitis Ulcerative colitis Peritoneal irritation secondary to pouchitis Dehydration Acute kidney injury secondary to vasomotor nephropathy-now resolved Disposition: DC-01 TO HOME OR SELFCARE Time spent for discharge: 35 mins Core Measure Documentation - Palliative Care Palliative Care/ Comfort Measures: Not Applicable - Core Measures Any of the following diagnoses?: none - VTE Discharge Requirements Deep Vein Thrombosis/Pulmonary Embolism Present on Admission: No Exam - Physical Exam Narrative exam: VITAL SIGNS: Reviewed. GENERAL: The patient appeared well nourished and normally developed. Vital signs as documented. HEAD: No signs of head trauma. EYES: Pupils are equal. Extraocular motions intact. EARS: Hearing grossly intact. MOUTH: Oropharynx is normal. NECK: No adenopathy, no JVD. CHEST: Chest with clear breath sounds bilaterally. No wheezes, rales, or rhonchi. CARDIAC: Regular rate and rhythm. S1 and S2, without murmurs, gallops, or rubs. VASCULAR: No Edema. Peripheral pulses normal and equal in all extremities. ABDOMEN: Soft, initially located tenderness has improved.. No sign of distention. No rebound or guarding, and no masses palpated. Bowel Sounds normal. MUSCULOSKELETAL: Good range of motion of all major joints. Extremities without clubbing, cyanosis or edema. NEUROLOGIC EXAM: Alert and oriented x 3. No focal sensory or strength deficits. Speech normal. Follows commands. PSYCHIATRIC: Mood normal. SKIN: Well-healed surgical scar 2 in the abdomen one in the right lower quadrant and one in the mid umbilicus to suprapubic area. - Constitutional Vitals: Temp Pulse Resp BP Pulse Ox 99.0 F 75 14 110/69 96 02/05/17 13:15 02/05/17 13:15 02/05/17 13:15 02/05/17 13:15 02/05/17 13:15 Plan Activity: advance as tolerated, fall precautions Diet: other (Per GI recomendation) Follow up with: CED SAM MD [Primary Care Provider] - 3-5 Days LEN DUMONT MD [Staff Physician] - 14 Days Prescriptions: Ciprofloxacin HCl [Ciprofloxacin TAB] 500 mg PO Q12HR 7 Days tab Lactobacillus Acidophilus [Probiotic Acidophilus] 1 each PO DAILY #30 tablet metroNIDAZOLE [Flagyl] 500 mg PO Q8HR 7 Days tablet
[2017-02-05 16:18] VITALS: BP 118/88
[2017-02-16 13:26] LABS: Myeloperoxidase Antibody <1.0 AI (<1.0)
[2017-02-16 13:26] LABS: Albumin 3.6 g/dL (3.8-4.8); Gamma Globulin 0.7 g/dL (0.8-1.7)
== END 2017-02-05 17:00 | disposition home or self-care (01) | DRG 393 ==
LOC: ED 07:26 → 3A 12:44
PROVIDERS: ADMIT Internal Medicine; ATTEND Internal Medicine
PROC: 0DBE8ZX Excision of Large Intestine, Via Natural or Artificial Opening Endoscopic, Diagnostic (ICD-10-PCS; principal; 2017-02-05)
DX: K91.850 Pouchitis (principal); K65.9 Peritonitis, unspecified; N17.0 Acute kidney failure with tubular necrosis; K56.7 Ileus, unspecified; K51.90 Ulcerative colitis, unspecified, without complications; K52.9 Noninfective gastroenteritis and colitis, unspecified; E86.0 Dehydration; M06.9 Rheumatoid arthritis, unspecified; I10 Essential (primary) hypertension; E78.00 Pure hypercholesterolemia, unspecified; Y83.8 Other surgical procedures as the cause of abnormal reaction of the patient, or of later complication, without mention of misadventure at the time of the procedure; Y92.89 Other specified places as the place of occurrence of the external cause; Z79.82 Long term (current) use of aspirin; Z79.899 Other long term (current) drug therapy
CPT/HCPCS: 36415; 74176; 80048; 80053; 80074; 81001; 82565; 82570; 83690; 84156; 84165; 84295; 84300; 85007; 85025; 85027; 86021; 86160; 87040; 88305; 96361; 96374; 96375; 96376; A9270-GY; J0500; J0696; J1170; J1200; J1644; J2405; J2704; J7030